=== PATIENT | female | born 1995 | race Caucasian/White ===

== ENCOUNTER 2023-10-31 15:04 | Emergency (ER) | payer MEDICAID, OTHER ==
[~2023-10-31] VITALS: Ht 152.4 cm; Wt 95.2 kg
[2023-10-31 15:55] LABS: Urine Bacteria FEW /hpf (None Seen); Urine Blood 1+ /uL (Negative); Urine Clarity Clear (Clear); Urine Color Yellow (Yellow); Urine Mucus FEW (None Seen); Urine Protein, UAD 1+ (Negative); Urine Specific Gravity 1.037 (1.001-1.035); Urine Urobilinogen 2 mg/dL (Negative); Urine WBC 10 /hpf (0 - 5)
[2023-10-31] MEDS: ONDANSETRON ODT 4 MG TAB PO ONE (15:57)
[2023-10-31] MEDS: DICYCLOMINE HCL (10MG/ML) 2 ML AMPULE IM ONE (15:58)
[2023-10-31 16:09] LABS: Basophils # (auto) 0.1 10 ^3/uL (0-0.2); Eosinophils # (auto) 0.2 10 ^3/uL (0-0.8); Eosinophils % (auto) 1.6 % (0.0-7.0); Hematocrit 44.7 % (36.0-46.0); Hemoglobin 15.4 g/dL (12.2-16.2); Lymphocytes # (auto) 3.5 10 ^3/uL (0.4-5.4); Lymphocytes % (auto) 31.9 % (10.0-50.0); Mean Corpuscular Hemoglobin 27.4 pg (28.0-32.0); Mean Corpuscular Hgb Conc. 34.5 g/dL (32.0-36.0); Mean Corpuscular Volume 79.2 fL (80.0-100.0); Monocytes # (auto) 0.6 10 ^3/uL (0-1.3); Monocytes % (auto) 5.5 % (0.0-12.0); Neutrophils # (auto) 6.5 10 ^3/uL (1.6-8.6); Nucleated Red Blood Cells % 0.1 %; Red Blood Cells 5.65 10^6/uL (4.0-5.20); Red Cell Distribution Width 14.9 % (11.8-14.3); White Blood Cell 10.8 10^3/uL (4.4-10.8)
[2023-10-31 16:19] LABS: Anion Gap 11 (5-15); Carbon Dioxide 22 mmol/L (20-30); Chloride 106 mmol/L (98-107); Potassium 3.7 mmol/L (3.5-5.1); Sodium 139 mmol/L (136-145)
[2023-10-31 16:20] LABS: Calcium 9.5 mg/dL (8.7-10.4)
[2023-10-31 16:25] LABS: BUN/Creatinine Ratio 15.2 (10.0-20.0); Blood Urea Nitrogen 10 mg/dL (9-23); Glucose 100 mg/dL (74-106); Lipase 44 U/L (12-53)
[2023-10-31] MEDS: HYDROmorphone HCL 2 MG/ML VL/or syr IM ONE (16:41)
[2023-10-31] MEDS ORDERED: IBUP-1455 PO (18:19)
[2023-10-31] MEDS ORDERED: ZOFR4T PO (18:19)
[2023-10-31 18:54] VITALS: BP 120/70; PULSE 60; RESP 20; TEMP 97.8; O2SAT 97
== END 2023-10-31 18:53 | disposition home or self-care (01) ==
LOC: ER 15:04
DX: K76.0 Fatty (change of) liver, not elsewhere classified (principal); N83.202 Unspecified ovarian cyst, left side; E66.01 Morbid (severe) obesity due to excess calories; Z68.41 Body mass index [BMI] 40.0-44.9, adult
CPT/HCPCS: 36415; 74176; 80048; 81001; 81025; 83690; 85025; 96372; 99285; J0500; J1170; Q0162

== ENCOUNTER 2023-11-10 13:56 | Emergency (ER) | payer MEDICAID ==
[~2023-11-10] VITALS: Ht 152.4 cm; Wt 94.1 kg
[~2023-11-10 13:56] MED LIST: IBUP-1455 PO; ZOFR4T PO
[2023-11-10 15:02] LABS: Basophils # (auto) 0.1 10 ^3/uL (0-0.2); Basophils % (auto) 1.3 % (0.0-2.0); Eosinophils # (auto) 0.3 10 ^3/uL (0-0.8); Hematocrit 46.4 % (36.0-46.0); Lymphocytes % (auto) 34.9 % (10.0-50.0); Mean Corpuscular Hemoglobin 27.2 pg (28.0-32.0); Mean Corpuscular Hgb Conc. 34.4 g/dL (32.0-36.0); Mean Corpuscular Volume 79.2 fL (80.0-100.0); Monocytes # (auto) 0.5 10 ^3/uL (0-1.3); Monocytes % (auto) 5.8 % (0.0-12.0); Neutrophils # (auto) 4.7 10 ^3/uL (1.6-8.6); Nucleated Red Blood Cells % 0.2 %; Red Blood Cells 5.86 10^6/uL (4.0-5.20); Red Cell Distribution Width 15.3 % (11.8-14.3); White Blood Cell 8.6 10^3/uL (4.4-10.8)
[2023-11-10 15:27] LABS: Beta HCG, Quantitative 0.2 mIU/mL (1.5-4.2)
[2023-11-10 15:28] LABS: Alanine Aminotransferase 37 U/L (7-40); Albumin 4.3 g/dL (3.2-4.8); Alkaline Phosphatase 139 U/L (46-116); Anion Gap 10 (5-15); Aspartate Aminotransferase 27 U/L (13-40); BUN/Creatinine Ratio 20.9 (10.0-20.0); Blood Urea Nitrogen 14 mg/dL (9-23); Calcium 9.7 mg/dL (8.7-10.4); Carbon Dioxide 23 mmol/L (20-30); Chloride 108 mmol/L (98-107); Glucose 140 mg/dL (74-106); Potassium 4.2 mmol/L (3.5-5.1); Sodium 141 mmol/L (136-145); Thyroid Stimulating Hormone 1.18 uIU/mL (0.358-3.74)
[2023-11-10 15:29] LABS: Bilirubin, Total 0.3 mg/dL (0.2-1.0); Total Protein 7.1 g/dL (5.7-8.2)
[2023-11-10 15:38] LABS: Free T3 3.84 pg/mL (2.3-4.2)
[2023-11-10 15:39] LABS: Free T4 (Free Thyroxine) 1.28 ng/dL (0.89-1.76)
[2023-11-10] MEDS: METOCLOPRAMIDE HCL 10 MG TAB PO ONE (15:46)
[2023-11-10] MEDS: diazePAM 2 MG TAB PO ONE (15:46)
[2023-11-10] MEDS: SUMAtriptan SUCCINATE 6 MG/0.5 ML VL SC ONE (15:46)
[2023-11-10] MEDS: KETOROLAC TROMETH 60MG/2ML VIAL IM ONE (15:47)
[2023-11-10] MEDS ORDERED: LOPE1TAB24 PO (17:29)
[2023-11-10 17:54] VITALS: BP 143/78; PULSE 61; RESP 17; TEMP 98.4; O2SAT 97
[2023-11-10 19:47] LABS: Urine Bacteria None Seen /hpf (None Seen)
[2023-11-10 20:09] LABS: Urine Blood TRACE /uL (Negative); Urine Clarity Turbid (Clear); Urine Color Yellow (Yellow); Urine Mucus FEW (None Seen); Urine Protein, UAD 1+ (Negative); Urine Specific Gravity 1.033 (1.001-1.035); Urine Urobilinogen 3 mg/dL (Negative); Urine WBC 20 /hpf (0 - 5)
== END 2023-11-10 17:58 | disposition home or self-care (01) ==
LOC: ER 13:58
DX: G43.D0 Abdominal migraine, not intractable (principal); R10.2 Pelvic and perineal pain; R10.13 Epigastric pain; K90.41 Non-celiac gluten sensitivity; K58.8 Other irritable bowel syndrome; Z79.1 Long term (current) use of non-steroidal anti-inflammatories (NSAID)
CPT/HCPCS: 36415; 70450; 80053; 81001; 81025; 83036; 84439; 84443; 84481; 84702; 85025; 96372; 99285; J1885; J3030; J8597

== ENCOUNTER 2024-01-07 17:03 | Emergency (ER) | payer MEDICAID ==
[~2024-01-07] VITALS: Ht 152.4 cm; Wt 89.7 kg
[~2024-01-07 17:03] MED LIST changes: +LOPE1TAB24 PO
[2024-01-07 17:30] VITALS: BP 134/77; PULSE 68; RESP 18; O2SAT 97
[2024-01-07 19:27] LABS: Urine Bacteria None Seen /hpf (None Seen)
[2024-01-07 19:48] LABS: Urine Amorphous Crystal FEW /hpf (None Seen); Urine Blood Negative /uL (Negative); Urine Clarity Ex.Turbid (Clear); Urine Color Colorless (Yellow); Urine Protein, UAD 1+ (Negative); Urine Specific Gravity 1.027 (1.001-1.035); Urine Urobilinogen 2 mg/dL (Negative); Urine WBC 40 /hpf (0 - 5); Urine WBC Clumps PRESENT /hpf (None Seen); Urine pH 7.5 (5.0-9.0)
[2024-01-07 19:54] LABS: Basophils # (auto) 0.1 10 ^3/uL (0-0.2); Basophils % (auto) 0.9 % (0.0-2.0); Eosinophils # (auto) 0.1 10 ^3/uL (0-0.8); Eosinophils % (auto) 1.2 % (0.0-7.0); Hematocrit 44.7 % (36.0-46.0); Hemoglobin 15.3 g/dL (12.2-16.2); Lymphocytes # (auto) 3.2 10 ^3/uL (0.4-5.4); Lymphocytes % (auto) 28.9 % (10.0-50.0); Mean Corpuscular Hemoglobin 27.3 pg (28.0-32.0); Mean Corpuscular Hgb Conc. 34.3 g/dL (32.0-36.0); Mean Corpuscular Volume 79.4 fL (80.0-100.0); Monocytes # (auto) 0.7 10 ^3/uL (0-1.3); Monocytes % (auto) 6.4 % (0.0-12.0); Neutrophils % (auto) 62.6 % (37.0-80.0); Platelet Count (auto) 366 10^3/uL (140-450); Red Blood Cells 5.63 10^6/uL (4.0-5.20); Red Cell Distribution Width 14.9 % (11.8-14.3); White Blood Cell 11.2 10^3/uL (4.4-10.8)
[2024-01-07 20:09] LABS: Alanine Aminotransferase 28 U/L (7-40); Albumin 4.7 g/dL (3.2-4.8); Alkaline Phosphatase 160 U/L (46-116); Anion Gap 9 (5-15); Aspartate Aminotransferase 17 U/L (13-40); BUN/Creatinine Ratio 19.7 (10.0-20.0); Bilirubin, Total 0.3 mg/dL (0.2-1.0); Blood Urea Nitrogen 14 mg/dL (9-23); Calcium 10.3 mg/dL (8.7-10.4); Carbon Dioxide 25 mmol/L (20-31); Chloride 108 mmol/L (98-107); Glucose 96 mg/dL (74-106); Potassium 3.8 mmol/L (3.5-5.1); Sodium 142 mmol/L (136-145); Total Protein 7.7 g/dL (5.7-8.2)
[2024-01-07 20:24] LABS: Lipase 51 U/L (12-53)
[2024-01-07] MEDS ORDERED: NAP500T GT (20:32)
== END 2024-01-08 00:23 | disposition home or self-care (01) ==
LOC: ER 17:10
DX: N83.202 Unspecified ovarian cyst, left side (principal); Z79.899 Other long term (current) drug therapy
CPT/HCPCS: 36415; 76705; 76856; 80053; 81001; 83690; 85025

== ENCOUNTER 2024-06-16 15:16 | Emergency (ER) | payer OTHER, MEDICAID ==
[~2024-06-16] VITALS: Ht 152.4 cm; Wt 92.9 kg
[~2024-06-16 15:16] MED LIST changes: +NAP500T GT
--- NOTE | 2024-06-16 15:44 | ED.PDOC ---
History of Present Illness HPI Comments 29-year-old female with no reported PMHx or PSHx presents with a chief complaint of abnormal vaginal bleeding x intermittently for weeks. Patient states that she began to have vaginal bleeding during 05/21 - 05/27, which then stopped. However, patient reports that she again started to have abnormal vaginal b leeding starting on 06/02 - 06/06 then suddenly stopped again. Patient now is reporting she is again having abnormal vaginal bleeding and she is going through 6 pads per day starting on 06/15. Patient reports that she is taking oral contraceptives, but is not sexually active. Patient is . 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 Patient denies an increase in stress r ecently. Chief Complaint: Vaginal Bleed Time Seen by MD: 15:20 Primary Care Provider: CATRINA Sin Notes: Medications, Allergies Allergies: Coded Allergies: NO KNOWN ALLERGIES (Unverified , 11/10/23) Home Meds Active Scripts Naproxen (NAPROSYN TABLET) 500 Mg Tb, 500 MG GT BID for 10 Days, #20 TAB Prov:CHALO YOUNGBLOOD MD 01/07/24 Loperamide-Simethicone (Loperamide Hydrochloride/ 2-125 mg) 1 Tab Tab, 1 TAB PO BID PRN, #14 TAB 0 Refills Prov:AARON PEÑA MD 11/10/23 Ibuprofen Micronized (Ibuprofen) 800 Mg Tab, 800 MG PO Q8HP PRN, #20 TAB Prov:HOMERO MONTEZ 10/31/23 Ondansetron Odt 4MG Tab (ZOFRAN PO) 4 Mg Tb, 4 MG PO Q6HP PRN, #20 TAB ODT TAB-DISSOLVE IN MOUTH, THEN SWALLOW Prov:HOMERO MONTEZ 10/31/23 Information Source: Patient Mode of Arrival: Ambulatory Severity: Moderate Timing: Weeks Duration: Intermittent Prehospital treatment: None Past Medical History PAST MEDICAL HISTORY: Denies Surgical History: Denies all surgeries SCHOOL ADJUSTMENT COUNSELOR History: No Pertinent SCHOOL ADJUSTMENT COUNSELOR History Family History Family History: Reviewed,noncontributory to illness, No family hx of Cancer, No family hx of DM, No family hx of Heart orly, No family hx of HTN, No family hx ofKidney orly, No family hx of Liver orly, No family hx of Lung orly, No family hx of Stroke Social History Smoker: Non-Smoker Alcohol: Denies ETOH Use Drugs: Denies Drug Use Lives In: Home Constitutional: denies: chills, diaphoresis, fatigue, fever, malaise, sweats, weakness, others EENTM: denies: blurred vision, double vision, ear bleeding, ear discharge, ear drainage, ear pain, ear ringing, eye pain, eye redness, hearing loss, mouth pain, mouth swelling, nasal discharge, nose bleeding, nose congestion, nose pain, photophobia, tearing, throat pain, throat swelling, voice changes, others Respiratory: denies: cough, hemoptysis, orthopnea, SOB at rest, shortness of breath, SOB with excertion, stridor, wheezing, others Gastrointestinal: denies: abdomen distended, abdominal pain, blood streaked bowels, constipated, diarrhea, dysphagia, difficulty swallowing, hematemesis, melena, nausea, poor appetite, poor fluid intake, rectal bleeding, rectal pain, vomiting, others Genitourinary: reports: abnormal vagina bleeding; denies: burning, dyspareunia, dysuria, flank pain, frequency, hematuria, incontinence, pain, , vagina discharge, urgency, others Neurological: denies: dizziness, fainting, headache, left sided numbness, left sided weakness, numbness, paresthesia, pre-existing deficit, right sided numbness, right sided weakness, seizure, speech problems, tingling, tremors, weakness, others Musculoskeletal: denies: back pain, gout, joint pain, joint swelling, muscle pain, muscle stiffness, neck pain, others Integumetry: denies: bruises, change in color, change in hair/nails, dryness, laceration, lesions, lumps, rash, wounds, others Allergic/Immunocompromised: denies: Difficulty Healing, Frequent Infections, Hives, Itching, others Hematologic/Lymphatic: denies: anemia, blood clots, easy bleeding, easy bruising, swollen glands, others Endocrine: denies: excessive hunger, excessive sweating, excessive thirst, excessive urination, flushing, intolerance to cold, intolerance to heat, unexplained weight gain, unexplained weight loss, others Psychiatric: denies: anxiety, bipolar disorder, depression, hopeless, panic disorder, schizophrenia, sleepless, suicidal, others All Other Systems: Reviewed and Negative Physical Exam General Appearance: No Apparent Distress, Normal HEENT: Normal ENT Inspection, Pharynx Normal, TMs Normal Neck: Full Range of Motion, Non-Tender, Normal, Normal Inspection Respiratory: Chest Non-Tender, Lungs Clear, No Accessory Muscle Use, No Respiratory Distress, Normal Breath Sounds Cardiovascular: No Edema, No JVD, No Murmur, No Gallop, Normal Peripheral Pulses, Regular Rate/Rhythm Breast Exam: Deferred Gastrointestinal: No Organomegaly, Non Tender, No Pulsatile Mass, Normal Bowel Sounds, Soft Genitalia: Deferred Pelvic: Deferred Rectal: Deferred Extremities: No calf tenderness, Normal capillary refill, Normal inspection, Normal range of motion, Non-tender, No pedal edema Musculoskeletal : Apperance: Normal Neurologic: Alert, watch inspector final movement II-XII nml as Tested, No Motor Deficits, Normal Affect, Normal Mood, No Sensory Deficits Cerebellar Function: Normal Reflexes: Normal Skin: Dry, Normal Color, Warm Lymphatic: No Adenopathy Was a procedure done? Was a procedure done?: No Differential Dx Considerations may include: ECTOPIC , RUPTURED OVARIAN CYST, DYSMENORRHEA X-Ray, Labs, Meds, VS Vital Signs Date Time Temp Pulse Resp B/P (MAP) Pulse Ox O2 Delivery O2 Flow Rate FiO2 06/16/24 16:08 97.9 76 16 147/83 (104) 95 97.9 06/16/24 15:45 80 19 97 Room Air* 0 21 06/16/24 15:45 98.0 80 16 148/89 (108) 98 98.0 06/16/24 15:25 97.8 70 18 120/84 (96) 98 Lab Test 06/16/24 15:59 06/16/24 15:43 Range/Units White Blood Count 10.2 4.4-10.8 10^3/uL Red Blood Count 5.83 H 4.0-5.20 10^6/uL Hemoglobin 15.6 12.2-16.2 g/dL Hematocrit 46.1 H 36.0-46.0 % Mean Corpuscular Volume 79.0 L 80.0-100.0 fL Mean Corpuscular Hemoglobin 26.8 L 28.0-32.0 pg Mean Corpuscular Hemoglobin Concent 33.9 32.0-36.0 g/dL Red Cell Distribution Width 15.5 H 11.8-14.3 % Platelet Count 304 140-450 10^3/uL Mean Platelet Volume 8.6 6.9-10.8 fL Neutrophils (%) (Auto) 58.3 37.0-80.0 % Lymphocytes (%) (Auto) 33.3 10.0-50.0 % Monocytes (%) (Auto) 5.0 0.0-12.0 % Eosinophils (%) (Auto) 2.3 0.0-7.0 % Basophils (%) (Auto) 1.1 0.0-2.0 % Neutrophils # (Auto) 6.0 1.6-8.6 10 ^3/uL Lymphocytes # (Auto) 3.4 0.4-5.4 10 ^3/uL Monocytes # (Auto) 0.5 0-1.3 10 ^3/uL Eosinophils # (Auto) 0.2 0-0.8 10 ^3/uL Basophils # (Auto) 0.1 0-0.2 10 ^3/uL Nucleated Red Blood Cells 0.1 % Sodium Level 141 136-145 mmol/L Potassium Level 4.1 3.5-5.1 mmol/L Chloride Level 105 98-107 mmol/L Carbon Dioxide Level 28 20-31 mmol/L Anion Gap 8 5-15 Blood Urea Nitrogen 11 9-23 mg/dL Creatinine 0.81 0.550-1.02 mg/dL Glomerular Filtration Rate Calc 101 >90 mL/min BUN/Creatinine Ratio 13.6 10.0-20.0 Serum Glucose 104 74-106 mg/dL Calcium Level 10.2 8.7-10.4 mg/dL Total Bilirubin 0.3 0.2-1.0 mg/dL Aspartate Amino Transferase (AST) 27 13-40 U/L Alanine Aminotransferase (ALT) 38 7-40 U/L Alkaline Phosphatase 153 H 46-116 U/L Total Protein 7.8 5.7-8.2 g/dL Albumin 4.9 H 3.2-4.8 g/dL Urine Color Light-brown Yellow Urine Clarity Turbid H Clear Urine pH 7.5 5.0-9.0 Urine Specific [place] 1.022 1.001-1.035 Urine Protein 1+ H Negative Urine Ketones Negative Negative Urine Blood 3+ H Negative /uL Urine Nitrite Negative Negative Urine Bilirubin Negative Negative Urine Urobilinogen Normal Negative mg/dL Urine Leukocyte Esterase Negative Negative /uL Urine RBC 1604 0 - 4 /hpf Urine Microscopic WBC 2 0-5 /HPF Urine Squamous Epithelial Cells Few <5 /hpf Urine Bacteria None seen None Seen /hpf Urine Glucose Normal Normal mg/dL X-Ray, Labs, Meds, VS Comment IMAGING: X-RAYS AND CT SCANS WERE REVIEWED AND INTERPRETED BY THIS PROVIDER, IMAGING SHOWS NO FRACTURES AND NO PATHOLOGICAL DISEASE. PENDING RADIOLOGY REVIEW. LABORATORY: LABS REVIEWED AND INTERPRETED BY THIS PROVIDER. NO SIGNIFICANT ABNORMALITIES NOTED. PATIENT HAS PRIOR MEDICAL VISITS REVIEWED. MED RECONCILIATION PERFORMED VITAL SIGNS REVIEWED Time of 1ST Reevaluation: 15:50 Reevaluation 1ST: Unchanged Patient Education/Counseling: Diagnosis, Treatment, Prognosis, Need For Follow Up (FOLLOW UP IN HIS EMERGENCY DEPARTMENT THE NEXT 24-48 HOURS IF SYMPTOMS WORSEN. FOLLOW UP WITH PCP NEXT AVAILABLE APPOINTMENT.) Family Education/Counseling: Diagnosis, Treatment, Prognosis Departure 1 Departure Time of Disposition: 16:51 Impression: Primary Impression: Dysmenorrhea Disposition: HOME / SELF CARE / HOMELESS Condition: Fair e-Prescriptions Medroxyprogesterone Acetate (PROVERA) 5 Mg Tab 1 TAB PO DAILY for 10 Days, #10 TAB 11 Refills Prov: AMEE ANTHONY 06/16/24 Discharged With: Self Comments PATIENT STATES SHE WAS APPOINTMENT SCHOOL ADJUSTMENT COUNSELOR IN TWO WEEKS. Critical Care Note Critical Care Time?: No Stability Stability form required: No Heart Score Heart Score: Heart Score Response (Comments) Value History N/A 0 EKG N/A 0 Age N/A 0 Risk Factors N/A 0 Troponin N/A 0 Total 0 I personally scribed for AMEE ANTHONY ([email or web address]) on 06/16/24 at 15:44. Electronically submitted by Elpidio Elder ([email or web address]). AMEE ANTHONY Jun 16, 2024 15:44
[2024-06-16 15:45] VITALS: PULSE 80; RESP 19; O2SAT 97
[2024-06-16 15:53] LABS: Urine Bacteria None Seen /hpf (None Seen)
[2024-06-16 16:03] LABS: Urine Blood 3+ /uL (Negative); Urine Clarity Turbid (Clear); Urine Color Light-Brown (Yellow); Urine Protein, UAD 1+ (Negative); Urine Specific Gravity 1.022 (1.001-1.035); Urine Squamous Epithelial Cell FEW /hpf (<5); Urine Urobilinogen Normal (Negative); Urine WBC 2 /HPF (0-5); Urine pH 7.5 (5.0-9.0)
[2024-06-16 16:11] LABS: Basophils # (auto) 0.1 10 ^3/uL (0-0.2); Basophils % (auto) 1.1 % (0.0-2.0); Eosinophils # (auto) 0.2 10 ^3/uL (0-0.8); Eosinophils % (auto) 2.3 % (0.0-7.0); Hematocrit 46.1 % (36.0-46.0); Hemoglobin 15.6 g/dL (12.2-16.2); Lymphocytes # (auto) 3.4 10 ^3/uL (0.4-5.4); Lymphocytes % (auto) 33.3 % (10.0-50.0); Mean Corpuscular Hemoglobin 26.8 pg (28.0-32.0); Mean Corpuscular Hgb Conc. 33.9 g/dL (32.0-36.0); Monocytes # (auto) 0.5 10 ^3/uL (0-1.3); Neutrophils % (auto) 58.3 % (37.0-80.0); Nucleated Red Blood Cells % 0.1 %; Platelet Count (auto) 304 10^3/uL (140-450); Red Blood Cells 5.83 10^6/uL (4.0-5.20); Red Cell Distribution Width 15.5 % (11.8-14.3); White Blood Cell 10.2 10^3/uL (4.4-10.8)
[2024-06-16 16:29] LABS: Alanine Aminotransferase 38 U/L (7-40); Anion Gap 8 (5-15); Aspartate Aminotransferase 27 U/L (13-40); BUN/Creatinine Ratio 13.6 (10.0-20.0); Blood Urea Nitrogen 11 mg/dL (9-23); Calcium 10.2 mg/dL (8.7-10.4); Carbon Dioxide 28 mmol/L (20-31); Chloride 105 mmol/L (98-107); Glucose 104 mg/dL (74-106); Potassium 4.1 mmol/L (3.5-5.1); Sodium 141 mmol/L (136-145); Total Protein 7.8 g/dL (5.7-8.2)
[2024-06-16 16:33] LABS: Albumin 4.9 g/dL (3.2-4.8); Alkaline Phosphatase 153 U/L (46-116); Bilirubin, Total 0.3 mg/dL (0.2-1.0)
--- NOTE | 2024-06-16 16:42 | DVH ---
TRANSABDOMINAL PELVIC ULTRASOUND HISTORY: VAG BLEED TECHNIQUE: Multiple tranabdominal sonographic images of the pelvis were obtained. Comparison: 01/07/2024 FINDINGS: The uterus measures 7.7 x 4.2 x 5.2 cm. The uterine myometrium appears homogeneous. There is no evid ence of a fibroid.. The endometrial stripe measures 3 mm . Right ovary measures 2.8 x 2.1 x 2.3 cm. Left ovary measures 3.5 x 3.4 x 3.0 cm. There is a 1.6 cm do minant follicle in the left ovary. The ovaries otherwise appear within normal limits with appropriate vascular flow. There is no evidence of an adnexal mass. There is no free fluid in the cul-de-sac. IMPRESSION: 1. Unremarkable transabdominal pelvic ultrasound HS:Y
[2024-06-16] MEDS ORDERED: MEDR5TAB28 PO (16:52)
[2024-06-16 17:13] VITALS: BP 141/92; PULSE 76; RESP 16; TEMP 98.3; O2SAT 99
== END 2024-06-16 17:19 | disposition home or self-care (01) ==
LOC: ER 15:16
DX: N94.6 Dysmenorrhea, unspecified (principal); Z79.899 Other long term (current) drug therapy
CPT/HCPCS: 36415; 76856; 80053; 81001; 85025